=== PATIENT | female | born 1955 | race Caucasian/White ===

== ENCOUNTER → 2017-11-17 10:04 | Outpatient (CLI) | payer OTHER, SELFPAY ==
[2017-11-17 10:26] LABS: Basophils % 0.8 % (0.1-2.0); Eosinophils # 0.3 K/mm3 (0.0-0.4); Eosinophils % 4.7 % (0.1-12.0); Hematocrit 40.5 % (37.0-47.0); Hemoglobin 13.4 g/dL (12.2-16.2); Lymphocytes # 1.8 K/mm3 (0.7-4.5); Lymphocytes % 31.4 K/mm3 (10-50); Mean Corpuscular HGB Conc 33.2 g/dL (31.8-35.4); Mean Corpuscular Hemoglobin 30.8 pg (27.0-31.2); Monocytes # 0.2 K/mm3 (0.1-1.0); Monocytes % 3.8 % (1.7-9.3); Neutrophils # 3.3 K/mm3 (1.8-7.8); Neutrophils % 59.3 % (37.0-80.0); Platelet Count 198 K/mm3 (142-424); Red Blood Count 4.35 M/mm3 (4.20-5.40); Red Cell Distribution Width 12.8 % (11.5-17.5); White Blood Count 5.6 K/mm3 (4.8-10.8)
[2017-11-17 17:40] LABS: Alanine Aminotransferase 38 U/L (12-78); Albumin Level 4.2 gm/dL (3.4-5.0); Albumin/Globulin Ratio 1.5 (1.1-1.8); Alkaline Phosphatase 78 U/L (46-116); Anion Gap 10.5 mEq/L (5-15); Aspartate Amino Transferase 19 U/L (15-37); Bilirubin,Total 0.4 mg/dL (0.2-1.0); Blood Urea Nitrogen 13 mg/dL (7-18); Calcium 9.3 mg/dL (8.5-10.1); Carbon Dioxide 31 mmol/L (21.0-32.0); Chloride 107 mmol/L (98-107); Creatinine,Serum 0.79 mg/dL (0.55-1.02); Estimated Glomerular Filt Rate 74 ml/min (>60); GFR (African American) 90 ML/MIN (>60); Globulin 2.8 gm/dl (1.3-3.2); Glucose 97 mg/dL (74-106); Potassium 4.5 mmoL/L (3.5-5.1); Sodium 144 mmol/L (136-145)
== END ==
PROVIDERS: Visit Provider Obstetrics & Gynecology
DX: Z01.419 Encounter for gynecological examination (general) (routine) without abnormal findings (principal); Z01.818 Encounter for other preprocedural examination; L98.9 Disorder of the skin and subcutaneous tissue, unspecified
CPT/HCPCS: 36415; 80053; 85025; 93005

== ENCOUNTER 2017-11-24 06:03 | Day surgery (SDC) | payer OTHER, SELFPAY ==
[2017-11-17 10:32] VITALS: BMI 31.9
[2017-11-24] VITALS (10 sets, daily range): BP systolic 96–121; BP diastolic 61–83; PULSE 55–73; RESP 16–20; TEMP 36.2–36.4; O2SAT 94–100
--- NOTE | 2017-11-24 06:57 | P.PN_ITS ---
[facility] Anesthesia Checklist - Patient Identification Patient Identification: Arm Band - Structural Data Admitted From: Home Planned Operative Procedure/s: excision right labial lesion Consent for Planned Operative Procedure(s) Verified: Yes Verified Documents: Surgical Consent, History and Physical - NPO Status Verified Time NPO: 00:00 - Additional verifications Anesthesia Reactions: No - Airway Assessment C-Spine Mobility Assessed: Yes (mp2) TMJ Mobility Assessed: Yes Dentition: Good Dentition - Neurological Assessment Level of Consciousness: Awake, Alert - Anesthesia Plan Anesthesia Risk discussed: Yes Anesthesia Plan: Verified ASA Class: I Anesthesia Type: General [facility] Anesthesia HX I have reviewed the patient's past medical history: Yes Medical History: Denies:: Cancer, Diabetes Mellitus Type 1, Diabetes Mellitus Type 2, MRSA, Seizures Other Medical History: Denies: Blood Transfusion Reaction Other Surgeries: Yes: Other (leisa, btl, back) Amputation: No Fractures: No *Family Hx:: Non-contributory
--- NOTE | 2017-11-24 07:21 | HMH.OPNOTE ---
Date of procedure: 11/24/17 Pre-op Diagnosis:: Right labial lesion Post-op Diagnosis:: Right labial lesion Procedure performed:: Wide excision of right labial lesion Surgeon:: Gal Harris MD MANU[employer]URING [employer] TECHNICIAN:: Edwin Pate Anesthesia: JANNETH Estimated blood loss (mL): 10 Operative findings:: Right labial lesion Operative note:: After the patient was prepped and draped in usual fashion and general anesthesia was administered, the 3 cm ovoid raised irregular right labial lesion was identified. It was infused with a dilute solution of Marcaine, as a local anesthetic, and for hemostasis. Wide margins were used as the lesion was fully excised. The edges of the incision were fulgurated for hemostasis, and then the incision was closed with a running unlocked suture of 3-0 Vicryl. Neosporin was placed over the wound. The sponge and needle counts correct. The estimated blood loss was less than 10 cc. The patient tolerated procedure well, was taken to PACU in excellent condition. She will be discharged today, if her vital signs are stable. Condition: stable Disposition: same day Specimens:: Right labial lesion Complications:: None
--- NOTE | 2017-11-24 07:25 | P.OP_ITS ---
Date of procedure: 11/24/17 Pre-op Diagnosis:: Right labial lesion Post-op Diagnosis:: Right labial lesion Procedure performed:: Wide excision of right labial lesion Surgeon:: Gal Harris MD MEDICAL CODER:: Edwin Pate Anesthesia: JANNETH Estimated blood loss (mL): 10 Operative findings:: Right labial lesion Operative note:: After the patient was prepped and draped in usual fashion and general anesthesia was administered, the 3 cm ovoid raised irregular right labial lesion was identified. It was infused with a dilute solution of Marcaine, as a local anesthetic, and for hemostasis. Wide margins were used as the lesion was fully excised. The edges of the incision were fulgurated for hemostasis, and then the incision was closed with a running unlocked suture of 3-0 Vicryl. Neosporin was placed over the wound. The sponge and needle counts correct. The estimated blood loss was less than 10 cc. The patient tolerated procedure well, was taken to PACU in excellent condition. She will be discharged today, if her vital signs are stable. Condition: stable Disposition: same day Specimens:: Right labial lesion Complications:: None
--- NOTE | 2017-11-24 07:30 | HMH.ANESI ---
[facility] Anesthesia Record Part I Intake, IV Amount: 300 Estimated blood loss (mL): 5 Urine output (mL): 0 Blood Products used (#): none Blood Pressure: 96/61 SaO2: 94 Pulse Rate: 68 Respiratory Rate: 18 Temperature: 97.1 F Patient is:: Drowsy, Stable Stable to PACU at:: 07:29
--- NOTE | 2017-11-24 07:32 | P.PN_ITS ---
[facility] Anesthesia Record Part II Discharge Time: 07:59 Destination: Surgical Day Care (OP Surgery) PACU nurse assessment reviewed?: Yes Patient Condition:: Good Anesthesia Complications:: None
[2017-11-24 08:24] LABS: Hematocrit 37.1 % (37.0-47.0); Hemoglobin 12.7 g/dL (12.2-16.2)
== END 2017-11-24 08:35 | disposition home or self-care (01) ==
LOC: OR 06:04
PROVIDERS: PCP Family Medicine; Visit Provider Obstetrics & Gynecology
PROC: (CPT 11423; principal; 2017-11-24 07:30)
DX: N90.89 Other specified noninflammatory disorders of vulva and perineum (principal)
CPT/HCPCS: 11423; 85014; 85018; 96374; J2405